=== PATIENT | male | born 1950 | race Caucasian/White ===

== ENCOUNTER → 2022-09-15 09:23 | Outpatient (BNVA) | payer MEDICARE, SELFPAY | PROVIDERS: PCP Internal Medicine; Visit Provider Urology | DX: N52.9 Male erectile dysfunction, unspecified (principal); N40.0 Benign prostatic hyperplasia without lower urinary tract symptoms; R97.20 Elevated prostate specific antigen [PSA]; Z87.442 Personal history of urinary calculi | CPT/HCPCS: 51798; 99202 ==

== ENCOUNTER 2022-11-26 14:33 | Outpatient (AMB) | payer MEDICARE, SELFPAY ==
--- NOTE | 2022-11-26 14:38 | A.OFFVIS_ITS ---
Intake Intake Visit Reasons: cysto Intake Note: Patient presents today for a CYSTOSCOPY Procedure: Meds: Finasteride & Vitamin B6 Allergies to Antibiotic: Penicillins Blood Thinner: None Urinalysis test cleared for Cysto Disposable Uro-G Cystoscope Cannula: Lot: [id number] Exp: 08/06/2024 Strategic Account Executive Required: No Accompanied by: Self / Same As Patient Allergies Penicillins Allergy (Mild, Verified 11/26/22 14:44) Unknown Medication List - Last Reconciled 11/26/22 by Leroy Hassan MD finasteride 5 mg PO DAILY irbesartan 75 mg PO DAILY pyridoxine (vitamin B6) 50 mg PO DAILY 90 days HPI HPI Comments History of Present Illness Details Claudio is a pleasant male. He is a patient of Dr. Motta. He is seen for the following urologic conditions - nephrolithiasis - lower urinary tract symptoms - erectile dysfunction Office cystoscopy today - medium and lateral lobe impingement Would like to undergo procedure early next year Review 3 months Lower urinary tract symptoms Longstanding Progressive Feelings of incomplete emptying Prior urologist had discussed use of finasteride. He had concerns regarding side effects PCP had prescribed daily tadalafil Discussion today regarding office cystoscopy in order to define anatomy and potential procedures. Risks and benefits discussed Erectile dysfunction Recent switched to daily tadalafil Nephrolithiasis For stones over prostate 20 years Works as excavator contractor Suggest increase fluids and vitamin B6 Prescription provided [facility] Medical History BPH (benign prostatic hyperplasia) Elevated PSA History of kidney stones HTN (hypertension) Peyronie's disease Primary osteoarthritis of knees, bilateral Surgical History (Updated 11/26/22 @ 14:45 by TEDDY Tellez) Hx of cystoscopy Review of Systems Const Denies chills and Denies fever(s) Card Reports no additional complaints and Denies syncope Resp Denies cough GI Denies abdominal pain and Denies heartburn Reports as per HPI and Denies change in libido Neuro Denies syncope Psych Denies change in libido Endo Denies change in libido Physical Exam Const General: cooperative, healthy appearing, comfortable and no acute distress Orientation/consciousness: patient oriented x3 HEENT Face and sinus: Yes normal facial exam Mouth: moist mucous membranes Neck Neck: Yes normal visual inspection, Yes full ROM and Yes trachea midline Chest Chest palpation & inspection: normal inspection of the chest Resp Effort & Inspection: normal respiratory effort, able to speak in complete sentences and no respiratory distress GI Inspection: Yes normal to inspection Back/Spine/Pelvis Cervical Spine: normal cervical lordosis Thoracic/Lumbar Spine: thoracic and lumbar spine normal to inspection Skin General skin exam: no rashes or lesions noted Neuro General: patient oriented x3, gait normal, tone normal and moves all extremities Extrem General: Yes normal to inspection and Yes capillary refill normal Office Procedures Cystoscopy Consent Discussed risk and benefit or proposed procedure with the patient. Information consent for procedure given to the patient. Discussed technical aspects, risks, benefits and alternatives in full. Addressed all of the patient's questions and concerns regarding the procedure. The patient demonstrated knowledge and understanding. They wish to proceed with this procedure. Preparation The patient was prepped in the usual manner. A senior attorney was present and in the room. Genitalia was prepped with betadine solution in a sterile manner. Lidocaine Jelly 2% was placed into the urethra and 16Fr flexible Olympus cystoscope was inserted into the meatus after adequate lubrication. Procedure Meatus circumcised Urethra anterior posterior urethra normal Prostatic Urethra median and left lateral lobe enlargement Bladder examination with retroflexion of cystoscope Bladder Orifices normal shape and position Bladder Capacity medium Trabeculations grade 2 Cellule Formation yes Diverticulum Formation - Mucosal Erythema - Bladder Tumor - [id number] Procedure code (CPT) selection complete Office Meds lidocaine HCl Performing Provider: Leroy Hassan MD Documented (not given) by: Leroy Hassan MD on 11/26/22 15:42 Dose Route Admin Location Lot Number Expiration Date NDC Plant Inspector 10 mL intra-urethral Results AMB Urinalysis, Automated UA Leukoctes 0 Leeanne/uL Last Edit by TEDDY Tellez on 11/26/22 14:44 UA Nitrite Negative Last Edit by TEDDY Tellez on 11/26/22 14:44 UA Urobilinogen 0.2 mg/dL Last Edit by Sri Jimenez, RMA on 11/26/22 14:4 4 UA Protein 0 mg/dL Last Edit by Sri Jimenez, RMA on 11/26/22 14:44 UA pH 6.0 Last Edit by Sri Tony, RMA on 11/26/22 14:44 UA Blood 0 Geovanny/uL Last Edit by Sri Jimenez, RMA on 11/26/22 14:44 UA Specific [place] 1.020 Last Edit by Sri Jimenez, RMA on 11/26/22 14: 44 UA Ketone Negative Last Edit by Sri Jimenez, RMA on 11/26/22 14:44 UA Bilirubin 0 mg/dL Last Edit by Sri Jimenez, RMA on 11/26/22 14:44 UA Glucose 0 mg/dL Last Edit by Sri Jimenez, RMA on 11/26/22 14:44 Results Reviewed Results Reviewed: Laboratory Last Values Urine pH (Auto) 6.0 11/26/22 14:40 Specific [place] (Auto) 1.020 11/26/22 14:40 Urine Protein (Auto) 0 mg/dL 11/26/22 14:40 Glucose (UA)(Auto) 0 mg/dL 11/26/22 14:40 Urine Ketones (Auto) Negative 11/26/22 14:40 Urine Blood (Auto) 0 Geovanny/uL 11/26/22 14:40 Urine Nitrite (Auto) Negative 11/26/22 14:40 Urine Bilirubin (Auto) 0 mg/dL 11/26/22 14:40 Urine Urobilinogen (Auto) 0.2 mg/dL 11/26/22 14:40 Leukocyte Esterase (Auto) 0 Leeanne/uL 11/26/22 14:40 Assessment & Plan Assessment & Plan (1) BPH (benign prostatic hyperplasia): Code(s): N40.0 - Benign prostatic hyperplasia without lower urinary tract symptoms Plan Recommend GreenLight laser prostatectomy Busy with excavation work Like to move ahead with procedure in May We discussed the nature of the decision and reasonable options for performing a prostate intervention. Interventions include TURP, GreenLight laser enucleation of the prostate, GreenLight laser ablation of the prostate, transurethral incision of the prostate, and I-Tend prostate procedure. Options such as medical therapy were discussed. The relative uncertainties and benefits related to each alternate procedure were adequately discussed. General surgical risks including, but not limited to, pain, bleeding, infection, myocardial infarction, pulmonary embolus, deep vein thrombosis and cerebrovascular accident which may result in further hospitalization were discussed. Full disclosure of the procedure as well as all major risks, benefits and complications were discussed including but not limited to damage to the urethra or bladder neck, recurrent BPH, retrograde ejaculation, bladder infection, urge, de bebo frequency, incomplete emptying, dysuria, remote chance of erectile dysfunction, epididymitis, and meatal stenosis. The success rate of the procedure was discussed. Success of the procedure in the short-term does not necessarily guarantee that long-term success will be maintained. Suitable follow up will need to be maintained. The patient showed understanding of discussion. An opportunity was provided for questions to be answered and wishes to proceed with the following procedure. - green light laser prostatectomy Orders: Orders AMB Cystoscopy Today N40.0 - Benign prostatic hyperplasia without lower urinary tract symptoms AMB Urinalysis Automated Today Z13.9 - Encounter for screening, unspecified Medications: New lidocaine HCl 2% 10 mL intra-urethral ONCE 10 mL 0RF N40.0 - Benign prostatic hyperplasia without lower urinary tract symptoms Patient Instructions: Imaging studies, laboratory and physical exam results were discussed and reviewed in detail. No major barriers to patient understanding were identified. An opportunity to ask questions regarding the treatment plan was provided. All questions were answered. The patient expressed understanding and agreement with the above treatment plan. The patient is aware they should contact our office by phone for worsening of their current condition or the appearance of new urologic symptoms. Compliance is encouraged with any medications and followup testing that is ordered. It is a privilege to participate in the urologic care of your patient. If you have any questions or concerns regarding treatment for the above conditions, or other urologic issues, please do not hesitate to contact me. The office telephone contact is [phone]. This note is constructed using voice recognition software. While every effort has been made to ensure accuracy transferrer errors may have been included. Yours sincerely, Dr Leroy Hassan MD, [facility] - Urology Providers of Expert, Compassionate Care for the Genitourinary System Coding Level of Care Code Est Pt Level 4 (33828) Diagnoses BPH (benign prostatic hyperplasia) N40.0 CPT Codes Cystoscopy - CPT: 07528-[id number] ([id number])
== END 2022-11-26 15:09 | disposition home or self-care (01) ==
PROVIDERS: PCP Internal Medicine; Visit Provider Urology
DX: N40.0 Benign prostatic hyperplasia without lower urinary tract symptoms (principal); N52.9 Male erectile dysfunction, unspecified; Z87.442 Personal history of urinary calculi
CPT/HCPCS: 52000; 99214

== ENCOUNTER → 2022-11-26 14:33 | Outpatient (BNVA) | payer MEDICARE, SELFPAY | PROVIDERS: PCP Internal Medicine; Visit Provider Urology | DX: N40.0 Benign prostatic hyperplasia without lower urinary tract symptoms (principal); N52.9 Male erectile dysfunction, unspecified; Z87.442 Personal history of urinary calculi | CPT/HCPCS: 52000; 81003; 99212 ==

== ENCOUNTER 2023-06-30 10:10 | Outpatient (AMB) | payer MEDICARE, SELFPAY ==
--- NOTE | 2023-06-30 10:10 | A.OFFVIS_ITS ---
Intake Intake Visit Reasons: Elevated PSA/MRI/Discuss to Surgery Intake Note: Patient presents today for a telehealth follow up on PSA/MRI/ Discussion for surgery Meds- Vitamin B6 Allergies to Antibiotic- Penicillins Blood Thinner- None Vice President Of Product Marketing Required: No Allergies Penicillins Allergy (Mild, Verified 06/30/23 10:14) Unknown HPI HPI Comments 2 History of Present Illness Details Claudio is a pleasant male. He is a patient of Dr. Motta. He is seen for the following urologic conditions - nephrolithiasis - lower urinary tract symptoms - erectile dysfunction Telemedicine Evaluation 15 min Consultation DoxProject Repat Adonis Video attempted Had pop in PSA up to 7 Did recommend biopsy at time of GreenLight laser Has concerns regarding retrograde ejaculation Recent MRI low power scan completed. Suggestive BPH. With indeterminate whorls. Office cystoscopy - medium and lateral lobe impingement Plan Greenlight with prostate biopsy Lower urinary tract symptoms Longstanding Progressive Feelings of incomplete emptying Prior urologist had discussed use of finasteride. He had concerns regarding side effects PCP had prescribed daily tadalafil Discussion today regarding office cystoscopy in order to define anatomy and potential procedures. Risks and benefits discussed Erectile dysfunction Recent switched to daily tadalafil Nephrolithiasis For stones over prostate 20 years Works as excavator contractor Suggest increase fluids and vitamin B6 Prescription provided [facility] Medical History Peyronie's disease HTN (hypertension) Elevated PSA History of kidney stones Primary osteoarthritis of knees, bilateral BPH (benign prostatic hyperplasia) Surgical History Hx of cystoscopy Review of Systems Const All systems reviewed & are unremarkable except as noted in HPI and below Reports no additional complaints Resp Reports no additional complaints GI Reports no additional complaints Reports as per HPI Musc Reports no additional complaints Physical Exam Telemedicine evaluation Appropriate responses Regular breathing rate and rhythm HEENT Head: Yes normal to inspection Ears: hearing grossly normal bilaterally Eyes General: appearance normal, both eyes and all related structures Neck Neck: Yes normal visual inspection Chest Chest palpation & inspection: normal inspection of the chest Resp Effort & Inspection: normal respiratory effort and able to speak in complete sentences Assessment & Plan Assessment & Plan (1) BPH (benign prostatic hyperplasia): Code(s): N40.0 - Benign prostatic hyperplasia without lower urinary tract symptoms (2) Elevated PSA: Code(s): R97.20 - Elevated prostate specific antigen [PSA] (3) Erectile dysfunction: Code(s): N52.9 - Male erectile dysfunction, unspecified Plan Plan procedure in August Patient Instructions: Imaging studies, laboratory and physical exam results were discussed and reviewed in detail. No major barriers to patient understanding were identified. An opportunity to ask questions regarding the treatment plan was provided. All questions were answered. The patient expressed understanding and agreement with the above treatment plan. The patient is aware they should contact our office by phone for worsening of their current condition or the appearance of new urologic symptoms. Compliance is encouraged with any medications and followup testing that is ordered. It is a privilege to participate in the urologic care of your patient. If you have any questions or concerns regarding treatment for the above conditions, or other urologic issues, please do not hesitate to contact me. The office telephone contact is [phone]. This note is constructed using voice recognition software. While every effort has been made to ensure accuracy hospital technician errors may have been included. Yours sincerely, Dr Leroy Hassan MD, [facility] - Urology Providers of Expert, Compassionate Care for the Genitourinary System Telehealth Telehealth Location of provider rendering services: practice address Location of patient: address on file Patient Identification confirmed using: Name, : Yes Telehealth method: video Patient verbally consented to treatment: Yes Patient verbally consented to billing insurance company: Yes Patient informed of any privacy concerns related to visit: Yes Coding Level of Care Code Est Pt Level 4 (03369) Diagnoses BPH (benign prostatic hyperplasia) N40.0 Elevated PSA R97.20 Erectile dysfunction N52.9
== END 2023-06-30 11:22 | disposition home or self-care (01) ==
LOC: HO.HUSH 10:10
PROVIDERS: PCP Internal Medicine; Visit Provider Urology
DX: N40.0 Benign prostatic hyperplasia without lower urinary tract symptoms (principal); R97.20 Elevated prostate specific antigen [PSA]; N52.9 Male erectile dysfunction, unspecified
CPT/HCPCS: 99214

== ENCOUNTER → 2023-06-30 10:10 | Outpatient (BNVA) | payer MEDICARE, SELFPAY | PROVIDERS: PCP Internal Medicine; Visit Provider Urology | DX: N40.0 Benign prostatic hyperplasia without lower urinary tract symptoms (principal); N52.9 Male erectile dysfunction, unspecified; R97.20 Elevated prostate specific antigen [PSA] | CPT/HCPCS: 99212 ==

== ENCOUNTER 2023-08-15 05:54 | Day surgery (SDC) | payer MEDICARE, SELFPAY ==
[2023-08-11 09:59] VITALS: BMI 23.0
--- NOTE | 2023-08-12 14:20 | HO.ANESPROP2 ---
Documented by User: Zita Mcbride NP 08/12/23 14:21 HPI - Anesthesia Eval Consult details Narrative: 73yo M for Laser Ablation Prostate w/Green Light, Prostate Needle Biopsy PMFSH Active Problems Active Problems: All Active Problems Erectile dysfunction (Acute) History of kidney stones (Acute) Elevated PSA (Acute) BPH (benign prostatic hyperplasia) (Acute) Past Medical History Medical History Peyronie's disease HTN (hypertension) Elevated PSA History of kidney stones Primary osteoarthritis of knees, bilateral BPH (benign prostatic hyperplasia) Surgical History Surgical History (Updated 08/11/23 @ 09:56 by Radha Mckay RN) History of esophagogastroduodenoscopy (EGD) H/O colonoscopy Hx of hernia repair Hx of hemorrhoidectomy History of total bilateral knee replacement Hx of cystoscopy Social History Social History Are you a primary human services care specialist to a significant other at home: No Do you presently have visiting nurse or other home services: No Patient Tobacco Use Status: Never used Tobacco Have you been hit, kicked, punched, or otherwise hurt by someone within the past year? If so, by whom?: No Are you DNR?: No Advance Directives Information Provided: Yes (will bring copy DOS) Advance Directives on File: No Recently lost weight without trying: No Eating poorly because of decreased appetite: No Nutrition Risks: No Nutritional Risk Poor oral hygiene: No (one dental implant) Meds Allergies Allergy/AdvReac Type Severity Reaction Status Date / Time Penicillins Allergy Mild itching if Verified 08/11/23 09:59 taken for extended time frame Home Medications ?Medication ?Instructions ?Recorded ?Confirmed ?Last Taken ?Type irbesartan 150 mg tablet 75 mg PO DAILY 09/15/22 08/11/23 Unknown History multivitamin 1 tab PO DAILY 08/11/23 08/11/23 Unknown History vitamin A-vitamin C-vit E-min 1 tab PO DAILY 08/11/23 08/11/23 Unknown History tablet Exam Height,Weight and Vital Signs: Height 5 ft 11 in Weight 74.843 kg Assessment and Plan Assessment Anesthesia Assessment: Chart Reviewed Documented by User: Adan Wei MD 08/15/23 07:25 [facility] Past Medical History Medical History Peyronie's disease HTN (hypertension) Elevated PSA History of kidney stones Primary osteoarthritis of knees, bilateral BPH (benign prostatic hyperplasia) Family History Family history of problems with anesthesia: No Surgical History Surgical History (Updated 08/11/23 @ 09:56 by Radha Mckay RN) History of esophagogastroduodenoscopy (EGD) H/O colonoscopy Hx of hernia repair Hx of hemorrhoidectomy History of total bilateral knee replacement Hx of cystoscopy History of Problems with Anesthesia: No Social History Social History Are you a primary human services care specialist to a significant other at home: No Do you presently have visiting nurse or other home services: No Patient Tobacco Use Status: Never used Tobacco Have you been hit, kicked, punched, or otherwise hurt by someone within the past year? If so, by whom?: No Are you DNR?: No Advance Directives Information Provided: Yes (will bring copy DOS) Advance Directives on File: No Recently lost weight without trying: No Eating poorly because of decreased appetite: No Nutrition Risks: No Nutritional Risk Poor oral hygiene: No (one dental implant) Meds Allergies Allergy/AdvReac Type Severity Reaction Status Date / Time Penicillins Allergy Mild itching if Verified 08/11/23 09:59 taken for extended time frame Home Medications ?Medication ?Instructions ?Recorded ?Confirmed ?Last Taken ?Type irbesartan 150 mg tablet 75 mg PO DAILY 09/15/22 08/11/23 Unknown History multivitamin 1 tab PO DAILY 08/11/23 08/11/23 Unknown History vitamin A-vitamin C-vit E-min 1 tab PO DAILY 08/11/23 08/11/23 Unknown History tablet Exam Airway Mallampati Class: II TM Dist: >3cm Neck ROM: Full Loose/Missing/Broken Teeth: No Heart: ok Lungs: ok Assessment and Plan Assessment Anesthesia Assessment: Anesthesia Plan Discussed Final Anesthetic Review Family History of Problems with Anesthesia: No History of Problems with Anesthesia: No NPO: Yes ASA Class: II Final Preanesthetic Review: No Changes in Pt Med Stat, Meds/Allgs Chart Reviewed, Consent Obtained/Reviewed and Anes Risks/Benef Reviewed Patient Risk: Intermediate Procedure Risk: Low Anesthetic Plan Anesthetic Plan: GA and Agree w/ Assess. and Plan Disposition: Standard PACU
[2023-08-15 06:13] VITALS: BMI 23.8
[2023-08-15 06:25] VITALS: BP 147/84; PULSE 70; RESP 16; TEMP 36.8; O2SAT 97
[2023-08-15] MEDS: Lactated Ringers 1,000 ML 100 ML IVCONT (06:45)
--- NOTE | 2023-08-15 07:32 | P.HPSUR_ITS ---
Pre-Procedural Eval Section A - 24 Hr Update-Section A only Date of Service: 08/15/23 The patient is an INPATIENT: No Changes since office visit: No Cold of Flu in the past 2 weeks, No New Medical Problems, No Changes in Medication and No Patient answered all questions The patient has been examined within 24 hours of the surgical procedure. The History & Physical has been completed within 30 days and I have reviewed it.: Yes Section B - Complete if H&P > 30 days Chief Complaint: Disorder of prostate, unspecified Details of Present Illness: Elevated PSA and enlarged prostate Relevant Social History: None Present Medications: see Short Stay Collaborative assessment Medical History: No relevant PMH History of Previous Operations: No relevant previous surgery Allergies: Allergies Allergy/AdvReac Type Severity Reaction Status Date / Time Penicillins Allergy Mild itching if Verified 08/11/23 09:59 taken for extended time frame Review of Systems Sugical H&P ROS: Negative: Constitution, Cardiovascular, Respiratory, Neurological, Psychiatric, Hem-Onc, Allergic/Immunologic, Gastrointestinal, Genitourinary, Musculoskeletal, Integumentary, Endocrine and Eyes/Ears/N ose/Throat Exam Surgical H&P Exam: Normal: HEENT, Normal: Heart, Normal: Lungs, Normal: Extremities, Normal: Abdomen, Normal: Skin and Normal: Neurological Plan Diagnosis/Plan: Unchanged (Prostate biopsy plus GreenLight laser prostate) I have reviewed the history and physical and performed a pertinent physical examination on my patient. No changes have occurred unless specified. Time Spent With Patient Time: Total time managing care of this patient today ____ minutes.
[2023-08-15 09:17] VITALS: BP 115/69; PULSE 55; RESP 16; TEMP 36.3; O2SAT 98
[2023-08-15 09:22] VITALS: BP 111/64; PULSE 55; RESP 16; O2SAT 98
--- NOTE | 2023-08-15 09:26 | P.OP_ITS ---
Operative Note Operative Note Date of Service: 08/15/23 Narrative: PreOperative Diagnosis: Bladder outlet obstruction, elevated PSA Post Operative Diagnosis: Bladder outlet obstruction, elevated PSA, bladder stone Procedure: 1) psrectal ultrasound measurement of prostate 2. transrectal ultrasound-guided pudendal nerve block 3. transrectal ultrasound-guided prostate biopsy 12 core 4) GreenLight Laser Enucleation of the prostate CPT 79887 5) bladder stone removal Surgeon: Dr Leroy Hassan Anesthesia: General Indications for procedure: Enlarged prostate 100 cc and elevated PSA. Recommendation for prostate needle biopsy with GreenLight laser enucleation of the prostate. PSA 4.0 History of bladder outlet obstruction. Treated with alpha-terri and other medications. Still with symptoms. On cystoscopy in office has trilobar prostate. Recommendation for prostate procedure with laser enucleation of prostate. Risks and benefits have been discussed. Focus was placed on development of retrograde ejaculation which is a normal part of this procedure. Procedure: After informed consent was verified the patient was brought to the operating room and placed in a supine position. Anesthesia was administered per protocol. Patient was placed in modified dorsal lithotomy position and prepped and draped in a sterile fashion. Safety pause time-out was confirmed. Antibiotics have been given. NVIIA performed to dilate rectal sphincter Iodine 10cc with Gel was placed per rectum to reduce infection risk Eight hertz Alivia ultrasound probe was placed transrectally without difficulty. The prostate was visualized. The portals were well demarcated, seminal vesicles were normal. No cystic structures were noted Calcifications were noted at the surgical margin The prostate was otherwise homogeneous in nature The prostate was measured in 3 dimensions Prostatic Width: 5.1 Prostatic height: 5.8 Urethral length:6.4 Total volume equals : 100 gm An ultrasound-guided pudendal nerve block was performed using a 22 gauge spinal needle in the sagittal plane. 4 cc of 1% lidocaine placed at the junction of each seminal vesicle and 2 cc placed at the apex of the prostate. A 12 core biopsy was performed with 6 cores each side using an 18 gauge prostate biopsy gun.. Two cores were taken at the apex, mid and base. Cores were spaced between lateral and medial. A Twenty-four Slovenian laser cystoscope was inserted per urethra. No abnormalities were found of the anterior and bulbar urethra. The bladder was examined and both ureteric orifices were seen in their normal positions away from the area of interest. Using a GreenLight laser with settings of 80 w incisions were made at the 5 and 7 o'clock position. The incisions were taken down from the bladder neck down to the level of the veru. These were gradually deepened in order to define the lateral aspects of the median lobe area. Once clearly defined they will also extended in the lateral directions in order to create a deep groove. The median lobe was then ablated and enucleated tissue released into the bladder with the laser power increased to 120 W. Once the median lobe area had been cleared attention was directed to the lateral lobes. Starting with the patient's left lateral lobe. First the 05:00 o'clock groove was further developed. This was moved in the lateral direction to undermine the tissue on the lateral side running from the bladder neck to the prostate apex. Focus was then placed on the laser at the 1 o'clock position to developing a secondary groove down to the level of bladder fibers. The creation of a second deep groove defined a segment of intervening tissue similar to a slice of orange. At the apex of the prostate the 2 grooves were linked the us releasing the intervening tissue. This tissue was then removed with a combination of enucleation and ablation working from the apex toward the bladder neck. A similar procedure was repeated on the patient's right-hand side. The only differences being the position of the lateral groove at he 7 'oclock positioin and the secondary groove at the 11 o'clock position, Otherwise the procedure was developed in a mirror fashion. After the majority of tissue had been debulked remnant tissue was ablated with t he side fire laser and the curve of the prostate followed up each side wall clearly defining the anterior remnant strip that remained between the 11 and 1 o'clock positions. In this case the anterior tissue protruded into the prostatic fossa and was partially ablated with the laser When this was had been completed debris and pieces of prostate were removed from the bladder with irrigation. 1 cm bladder stone seen. Using a 0 tip 2.4 Slovenian wire the stone was grasped and removed. Both ureteric orifices were reviewed again in shown to be patent in away from any areas of energy damage. The apical area was reviewed in any stray ooze was controlled. A 22 Slovenian 30 cc balloon Vides catheter was placed over a stylet into the bladder. Clear efflux was obtained upopn irrigation with a Jose piston syringe. 60 cc was placed in the balloon and gentle traction was placed. A snap was used to hold tension on the catheter to control bleeding during patient moved and transported. A drainage bag was placed. Once transportation is complete to the PACU the snap will be removed. The patient tolerated the procedure well, he was extubated in the operating and transferred in a stable condition to the recovery area. Total Power 230 kW Lasing time 34:03 / 60:00 Pathology: Prostate biopsy, bladder stone, Prostate tissue Drains: Vides catheter
[2023-08-15 09:27] VITALS: BP 102/58; PULSE 55; RESP 16; O2SAT 98
[2023-08-15] MEDS: Acetaminophen 325 MG TABLET 975 MG PO (09:27)
[2023-08-15 09:32] VITALS: BP 101/65; PULSE 54; RESP 16; O2SAT 98
[2023-08-15 09:47] VITALS: BP 119/68; PULSE 53; RESP 16; TEMP 36.3; O2SAT 99
== END 2023-08-15 10:22 | disposition home or self-care (01) ==
PROVIDERS: Visit Provider Urology
PROC: (CPT 52648; principal; 2023-08-15 07:30)
PROC: (CPT 55700; 2023-08-15 07:30)
DX: N32.0 Bladder-neck obstruction (principal); R97.20 Elevated prostate specific antigen [PSA]; C61 Malignant neoplasm of prostate; N21.0 Calculus in bladder; N40.0 Benign prostatic hyperplasia without lower urinary tract symptoms; N52.9 Male erectile dysfunction, unspecified; N48.6 Induration penis plastica; I10 Essential (primary) hypertension; Z87.442 Personal history of urinary calculi; Z79.899 Other long term (current) drug therapy; Z88.0 Allergy status to penicillin
CPT/HCPCS: 52649; 55700; 76942; 88300; 88305; 88344; J1956; J2704; J3010

== ENCOUNTER → 2023-08-15 05:54 | Outpatient (BNV) | payer MEDICARE, SELFPAY | PROVIDERS: Visit Provider Urology | DX: N32.0 Bladder-neck obstruction (principal); R97.20 Elevated prostate specific antigen [PSA]; N21.0 Calculus in bladder | CPT/HCPCS: 52649; 55700 ==

== ENCOUNTER 2023-08-18 08:47 | Outpatient (AMB) | payer MEDICARE, SELFPAY ==
--- NOTE | 2023-08-18 08:51 | AM.OFFVISNUR ---
Intake Intake Visit Reasons: VT (Greenlight) Allergies Penicillins Allergy (Mild, Verified 08/11/23 09:59) itching if taken for extended time frame Office Procedures Bladder/Catheter Procedure Details: Patient presents to office for VT s/p greenlight procedure. Instilled 120 mls through catheter, removal of 22fr catheter patient tolerated well. Patient able to urinate approximately 100mls. PVR for 225mls. Advised patient to drink lots of water to help flush out bladder and to call office by 2 if unable to urinate at home or if he has any questions or concerns. Gave handout for post-op expectations after greenlight procedure as well as explained normal expectations post procedure. Patient understood all information and agreeable. Patient will also be given tele visit late next week per Dr. Hassan to discuss biopsy results and keep post op follow up appt as well. 16660-Hnidgrpcpr of Bladder Procedure code (CPT) selection complete Post Void Residual Post Residual Void Post Void Residual (PVR): 225 71800-Lopv Void Residual by ultrasound Results AMB Urinalysis, Automated UA Leukoctes 125 Leeanne/uL Last Edit by Giovanni Gaspar LPN on 08/18/23 09:14 UA Nitrite Negative Last Edit by Giovanni Gaspar LPN on 08/18/23 09:14 UA Urobilinogen 0 mg/dL Last Edit by Giovanni Gaspar LPN on 08/18/23 09:14 UA Protein 0 mg/dL Last Edit by Giovanni Gaspar LPN on 08/18/23 09:14 UA pH 6.0 Last Edit by Giovanni Gaspar LPN on 08/18/23 09:14 UA Blood 200 Geovanny/uL Last Edit by Giovanni Gaspar LPN on 08/18/23 09:14 UA Specific [place] 1.020 Last Edit by Giovanni Gaspar LPN on 08/18/23 09:14 UA Ketone Negative Last Edit by Giovanni Gaspar LPN on 08/18/23 09:14 UA Bilirubin 0 mg/dL Last Edit by Giovanni Gaspar LPN on 08/18/23 09:14 UA Glucose 0 mg/dL Last Edit by Giovanni Gaspar LPN on 08/18/23 09:14 Coding CPT Codes Bladder/Catheter Procedure - CPT: 56335-Nrdczwgwht of Bladder ([id number]) Post Residual Void - PVR CPT Code: 57869-Cfef Void Residual by ultrasound ([id number]) Assessment & Plan Assessment & Plan Orders: Orders AMB Bladder/Catheter Procedure Today N40.0 - Benign prostatic hyperplasia without lower urinary tract symptoms AMB Post Void Residual by ultrasound Today N40.0 - Benign prostatic hyperplasia without lower urinary tract symptoms AMB Urinalysis Automated Today N40.0 - Benign prostatic hyperplasia without lower urinary tract symptoms
== END 2023-08-18 09:44 | disposition home or self-care (01) ==
PROVIDERS: PCP Internal Medicine; Visit Provider Urology
DX: N40.0 Benign prostatic hyperplasia without lower urinary tract symptoms (principal)

== ENCOUNTER → 2023-08-18 08:47 | Outpatient (BNVA) | payer MEDICARE, SELFPAY | PROVIDERS: PCP Internal Medicine; Visit Provider Urology | DX: N40.0 Benign prostatic hyperplasia without lower urinary tract symptoms (principal) | CPT/HCPCS: 51700; 51798; 81003 ==

== ENCOUNTER 2023-08-26 11:20 | Outpatient (AMB) | payer MEDICARE, SELFPAY ==
--- NOTE | 2023-08-26 11:21 | A.OFFVIS_ITS ---
Intake Visit Reasons: 1w/biopsy results Allergies Penicillins Allergy (Mild, Verified 08/11/23 09:59) itching if taken for extended time frame HPI Comments Details: Claudio is a pleasant male. He is a patient of Dr. Motta. He is seen for the following urologic conditions - nephrolithiasis - lower urinary tract symptoms - erectile dysfunction Telemedicine Evaluation 15 min Consultation Doximity Adonis Video attempted Discuss biopsy follow-up Low-grade low volume prostate cancer Would recommend surveillance Prostate cancer - low-grade, low volume Biopsy performed time of GreenLight laser Secondary to jump in PSA from 4.0 to 7 Qulin score: 3+3 = 6 Tumor quantitation: Number cores positive: 3 Total number of cores: 12 LBL 5%, LML 5%, RBL 5% % of tissue involved: Less than 5% of all tissue examined T1C 85 gm Lower urinary tract symptoms Longstanding - Progressive - Feelings of incomplete emptying Prior urologist had discussed use of finasteride. He had concerns regarding side effects PCP had prescribed daily tadalafil PSA 05/27 4.0 08/25 GreenLight laser prostate Erectile dysfunction Recent switched to daily tadalafil Nephrolithiasis For stones over prostate 20 years Works as excavator contractor Suggest increase fluids and vitamin B6 Prescription provided [facility] Medical History (Updated 08/26/23 @ 11:40 by Leroy Hassan MD) Peyronie's disease HTN (hypertension) Elevated PSA History of kidney stones Primary osteoarthritis of knees, bilateral BPH (benign prostatic hyperplasia) Surgical History (Updated 08/11/23 @ 09:56 by Radha Mckay RN) History of esophagogastroduodenoscopy (EGD) H/O colonoscopy Hx of hernia repair Hx of hemorrhoidectomy History of total bilateral knee replacement Hx of cystoscopy Social History Are you a primary health care manager to a significant other at home: No Do you presently have visiting nurse or other home services: No Patient Tobacco Use Status: Never used Tobacco Review of Systems Const All systems reviewed & are unremarkable except as noted in HPI and below Reports no additional complaints Resp Reports no additional complaints GI Reports no additional complaints Reports as per HPI Musc Reports no additional complaints Physical Exam Telemedicine evaluation Appropriate responses Regular breathing rate and rhythm HEENT Head: Yes normal to inspection Ears: hearing grossly normal bilaterally Eyes General: appearance normal, both eyes and all related structures Neck Neck: Yes normal visual inspection Chest Chest palpation & inspection: normal inspection of the chest Resp Effort & Inspection: normal respiratory effort and able to speak in complete sentences Telehealth Telehealth Telehealth Platform: NVELO Location of provider rendering services: practice address Location of patient: address on file Patient Identification confirmed using: Name, : Yes Telehealth method: video Patient verbally consented to treatment: Yes Patient verbally consented to billing insurance company: Yes Patient informed of any privacy concerns related to visit: Yes Minutes spent on Phone/Video with Pt.: 20 Assessment & Plan Assessment & Plan (1) Prostate cancer: Code(s): C61 - Malignant neoplasm of prostate Category: Medical (2) BPH (benign prostatic hyperplasia): Code(s): N40.0 - Benign prostatic hyperplasia without lower urinary tract symptoms Category: Medical Plan Plan Prolaris Patient Instructions: Imaging studies, laboratory and physical exam results were discussed and reviewed in detail. No major barriers to patient understanding were identified. An opportunity to ask questions regarding the treatment plan was provided. All questions were answered. The patient expressed understanding and agreement with the above treatment plan. The patient is aware they should contact our office by phone for worsening of their current condition or the appearance of new urologic symptoms. Compliance is encouraged with any medications and followup testing that is ordered. It is a privilege to participate in the urologic care of your patient. If you have any questions or concerns regarding treatment for the above conditions, or other urologic issues, please do not hesitate to contact me. The office telephone contact is [phone]. This note is constructed using voice recognition software. While every effort has been made to ensure accuracy therapeutic radiologist errors may have been included. Yours sincerely, Dr Leroy Hassan MD, WALKER [facility] - Urology Providers of Expert, Compassionate Care for the Genitourinary System Coding Level of Care Code Est Pt Level 4 (58708) Diagnoses Prostate cancer C61 BPH (benign prostatic hyperplasia) N40.0
== END 2023-08-26 12:00 | disposition home or self-care (01) ==
LOC: HO.HUSH 11:20
PROVIDERS: PCP Internal Medicine; Visit Provider Urology
DX: C61 Malignant neoplasm of prostate (principal); N40.0 Benign prostatic hyperplasia without lower urinary tract symptoms
CPT/HCPCS: 99024

== ENCOUNTER → 2023-08-26 11:20 | Outpatient (BNVA) | payer MEDICARE, SELFPAY | PROVIDERS: PCP Internal Medicine; Visit Provider Urology ==

== ENCOUNTER 2023-10-28 15:03 | Outpatient (AMB) | payer MEDICARE, SELFPAY ==
--- NOTE | 2023-10-28 15:19 | A.OFFVIS_ITS ---
Intake Visit Reasons: Greenlight- follow up Intake Note: Patient Is Present for Post Op Follow up Procedure Done:Prostate biopsy plus GreenLight laser prostate Urology Med: Vitamin B6 Antibiotic Allergy:Penicillins Blood Thinner: None Patient states that he does not have any concerns regarding urination Security Operations Manager Required: No Allergies Penicillins Allergy (Mild, Verified 08/11/23 09:59) itching if taken for extended time frame HPI Comments Details: Claudio is a pleasant male. He is a patient of Dr. Motta. He is seen for the following urologic conditions - nephrolithiasis - lower urinary tract symptoms - erectile dysfunction Follow-up from GreenLight laser prostatectomy Improving urinary flow Working Prostate cancer - 08/25 - low-grade, low volume Biopsy performed time of GreenLight laser Secondary to jump in PSA from 4.0 to 7 Jeremi score: 3+3 = 6 Tumor quantitation: Number cores positive: 3 Total number of cores: 12 LBL 5%, LML 5%, RBL 5% % of tissue involved: Less than 5% of all tissue examined T1C 85 gm Lower urinary tract symptoms Longstanding - Progressive - Feelings of incomplete emptying Prior urologist had discussed use of finasteride. He had concerns regarding side effects PCP had prescribed daily tadalafil PSA 05/27 4.0 08/25 GreenLight laser prostate Erectile dysfunction Recent switched to daily tadalafil Nephrolithiasis For stones over prostate 20 years Works as excavator contractor Suggest increase fluids and vitamin B6 Prescription provided [facility] Medical History Peyronie's disease HTN (hypertension) Elevated PSA History of kidney stones Primary osteoarthritis of knees, bilateral BPH (benign prostatic hyperplasia) Surgical History History of esophagogastroduodenoscopy (EGD) H/O colonoscopy Hx of hernia repair Hx of hemorrhoidectomy History of total bilateral knee replacement Hx of cystoscopy Social History Are you a primary child care worker to a significant other at home: No Do you presently have visiting nurse or other home services: No Patient Tobacco Use Status: Never used Tobacco Review of Systems Const Denies chills and Denies fever(s) Card Reports no additional complaints and Denies syncope Resp Denies cough GI Denies abdominal pain and Denies heartburn Reports as per HPI and Denies change in libido Neuro Denies syncope Psych Denies change in libido Endo Denies change in libido Physical Exam Const General: cooperative, healthy appearing, comfortable and no acute distress Orientation/consciousness: patient oriented x3 HEENT Face and sinus: Yes normal facial exam Mouth: moist mucous membranes Neck Neck: Yes normal visual inspection, Yes full ROM and Yes trachea midline Chest Chest palpation & inspection: normal inspection of the chest Resp Effort & Inspection: normal respiratory effort, able to speak in complete sentences and no respiratory distress GI Inspection: Yes normal to inspection Back/Spine/Pelvis Cervical Spine: normal cervical lordosis Thoracic/Lumbar Spine: thoracic and lumbar spine normal to inspection Skin General skin exam: no rashes or lesions noted Neuro General: patient oriented x3, gait normal, tone normal and moves all extremities Extrem General: Yes normal to inspection and Yes capillary refill normal Assessment & Plan Assessment & Plan (1) Prostate cancer: Code(s): C61 - Malignant neoplasm of prostate Category: Medical (2) BPH (benign prostatic hyperplasia): Code(s): N40.0 - Benign prostatic hyperplasia without lower urinary tract symptoms Category: Medical Plan Six-month follow-up imaging and PSA Orders: Orders Prostate Specific Antigen 6 Months C61 - Malignant neoplasm of prostate MR pelvis wo/w con 6 Months C61 - Malignant neoplasm of prostate Patient Instructions: Imaging studies, laboratory and physical exam results were discussed and reviewed in detail. No major barriers to patient understanding were identified. An opportunity to ask questions regarding the treatment plan was provided. All questions were answered. The patient expressed understanding and agreement with the above treatment plan. The patient is aware they should contact our office by phone for worsening of their current condition or the appearance of new urologic symptoms. Compliance is encouraged with any medications and followup testing that is ordered. It is a privilege to participate in the urologic care of your patient. If you have any questions or concerns regarding treatment for the above conditions, or other urologic issues, please do not hesitate to contact me. The office telephone contact is [phone]. This note is constructed using voice recognition software. While every effort has been made to ensure accuracy inspector of dredging errors may have been included. Yours sincerely, Dr Leroy Hassan MD, WALKER [facility] - Urology Providers of Expert, Compassionate Care for the Genitourinary System Coding Level of Care Code Est Pt Level 3 (65348) Diagnoses Prostate cancer C61 BPH (benign prostatic hyperplasia) N40.0
== END 2023-10-28 16:09 | disposition home or self-care (01) ==
PROVIDERS: PCP Internal Medicine; Visit Provider Urology
DX: C61 Malignant neoplasm of prostate (principal); N40.0 Benign prostatic hyperplasia without lower urinary tract symptoms
CPT/HCPCS: 99024

== ENCOUNTER → 2023-10-28 15:03 | Outpatient (BNVA) | payer MEDICARE, SELFPAY | PROVIDERS: PCP Internal Medicine; Visit Provider Urology | DX: N52.9 Male erectile dysfunction, unspecified (principal); C61 Malignant neoplasm of prostate; R33.9 Retention of urine, unspecified; Z87.442 Personal history of urinary calculi | CPT/HCPCS: 99212 ==

== ENCOUNTER 2024-04-21 08:30 | Outpatient (REF) | payer MEDICARE, SELFPAY ==
[2024-04-21 10:43] LABS: Prostate Specific Antigen 2.74 ng/mL (<0.05-4.0)
== END 2024-04-21 08:31 | disposition home or self-care (01) ==
LOC: HO.LAB 08:30
PROVIDERS: PCP Internal Medicine; Visit Provider Urology
DX: C61 Malignant neoplasm of prostate (principal); Z12.5 Encounter for screening for malignant neoplasm of prostate
CPT/HCPCS: 36415; 84153

== ENCOUNTER → 2024-04-25 08:32 | Outpatient (BNV) | payer MEDICARE, SELFPAY | PROVIDERS: PCP Internal Medicine; Visit Provider Radiology Diagnostic Radiology | DX: C61 Malignant neoplasm of prostate (principal) | CPT/HCPCS: 72197 ==

== ENCOUNTER 2024-04-25 08:33 | Outpatient (REF) | payer MEDICARE, SELFPAY ==
--- NOTE | ~2024-04-25 | MR_ITS ---
EXAMINATION: MR PELVIS WITHOUT THEN WITH IV CONTRAST HISTORY: C61 - Malignant neoplasm of prostate TECHNIQUE: 1.5T body coil survey of the pelvis was performed. Phase array coil imaging of the prostate was performed in multiplanar high resolution axial, coronal, sagittal fast spin echo T2 and axial T1 weighted imaging sequences. Axial diffusion imaging at intermediate and high field performed with ADC mapping. Next, 7 mL Gadavist was given by intravenous infusion, and dynamic axial imaging performed. COMPARISON: There are no prior studies for comparison. CLINICAL DATA: Most recent PSA: 2.74 ng/mL PSA Density: 0.048 ng/mL squared Prostate Biopsy: Positive biopsy on 08/15/2023 with a Barton score 3+3 = 6 FINDINGS: Prostate size: 4.7 x 4.8 x 4.9 cm. Calculated prostate volume is 57.5 mL. Hemorrhage: There is hyperintense T1 signal in the right peripheral zone consistent with hemorrhage. Transitional Zone: There is moderate heterogeneous nodular hypertrophy of the transitional zone. Peripheral Zone: There are scattered linear T2 hypointense foci in the peripheral zone which can be seen in the setting of prostatitis of scarring. No discrete focus of abnormal signal intensity is identified to suggest clinically significant prostate carcinoma. Seminal Vesicles/Ejaculatory Ducts: Symmetric and normal in signal and caliber. Pelvic Lymph Nodes: No obturator or internal iliac lymph nodes meeting size criteria for adenopathy. Marrow Signal: Normal marrow signal and enhancement without focal lesion identified. Other findings: The left testis is noted to be in the inguinal canal. MR/MR pelvis wo/w con IMPRESSION: No discrete focus of abnormal signal intensity is identified to suggest clinically significant prostate carcinoma. The left testis is located in the inguinal canal. PI-RADS 2: Low (clinically significant cancer is unlikely to be present) PI-RADS Assessment Categories PI-RADS 1: Very low (clinically significant cancer is highly unlikely to be present) PI-RADS 2: Low (clinically significant cancer is unlikely to be present) PI-RADS 3: Intermediate (the presence of clinically significant cancer is equivocal) PI-RADS 4: High (clinically significant cancer is likely to be present) PI-RADS 5: Very high (clinically significant cancer is highly likely to be present) [employer]. MR Prostate Imaging Reporting and Data System version 2.1. [email or web address] Electronically signed by: Christopher Bliss MD 04/26/2024 01:50 PM EST
--- OUTSIDE RECORDS SUMMARY | 2024-04-25 08:54 | XMS_ITS | Clinical Summary ---
Author Organization [facility] Address [address] [place] [address] Care Team Providers Care Hoist Operator Name Role Phone Efra Motta MD Primary Care Provider [phone] Allergies Active Allergy Reactions Criticality Noted Date Comments Penicillins Itching Low 03/27/2019 ONLY IF ON FOR LONG TIME Medications Medication Sig Dispensed Refills Start Date End Date Status irbesartan (AVAPRO) 150 MG tablet Take 75 mg by mouth daily. Using 1/2 tab 0 Active Multiple Vitamin (MULTI-VITAMIN PO) Take 1 tablet by mouth daily. 0 Active Multiple Vitamins-Minerals (OCUVITE EYE HEALTH FORMULA PO) Take 1 tablet by mouth every 7 days. 0 Active UNABLE TO FIND daily as needed. NUGENIX 1 TAB PO WEEKLY 0 Active sildenafil (VIAGRA) 50 MG tablet Take 50 mg by mouth daily as needed for erectile dysfunction. 0 Active Ascorbic Acid ER 1000 MG TBCR Take 1 tablet (1,000 mg total) by mouth daily. 30 each 0 04/25/2019 Active Glucosamine-Chondro it-Vit C-Mn (GLUCOSAMINE CHONDR 500 COMPLEX PO) Take by mouth. 0 Activ e UNABLE TO FIND Med Name: NMN procomplete 0 Active methocarbamol (ROBAXIN) 750 MG tablet Take 1 tablet (750 mg total) by mouth every 6 (six) hours as needed (muscle spasm). 40 tablet 0 04/21/2021 Active oxyCODONE (ROXICODONE) 5 MG immediate release tablet Take 1-2 tablets (5-10 mg total) by mouth every 4 (four) hours as needed for pain. 42 tablet 0 04/21/2021 Active senna-docusate (PERICOLACE) 8.6-50 MG Take 1 tablet by mouth 2 (two) times a day. 30 tablet 0 04/21/2021 Active Active Problems Problem Noted Date Diagnosed Date Osteoarthritis of both knees 04/24/2019 Primary osteoarthritis of both knees 04/05/2019 Immunizations Name Administration Dates Next Due Covid-19 (Pfizer) Dilution Required 07/12/2020,0 06/21/2020 Family History Medical History Relation Name Comments Heart attack Father Heart disease Father Hypertension Father Kidney disease Father FAILURE AT EN D OF LIFE Hypertension Mother No Sig Med Hx Sister 2 Relation Name Status Comments Father (Age 83) [place] Mother Alive Sister 2 Alive Social History Tobacco Use Types Packs/Day Years Used Date Smoking Tobacco: Never Smokeless Tobacco: Never Alcohol Use Standard Drinks/Week Comments Yes 0 (1 standard drink = 0.6 oz pur e alcohol) 1 6 pack per year Sex and Gender Information Value Date Recorded Sex Assigned at Male 03/27/2019 8:18 AM EST Gender Identity Male 03/27/2019 8:18 AM EST Sexual Orientation Not on file Job Start Date Occupation Industry Not on file Not on file Not on file Last Filed Vital Signs Vital Sign Reading Time Taken Comments Blood Pressure 127/74 04/21/2021 8:40 AM EST Pulse 58 04/21/2021 8:40 AM EST Temperature 36.9 ??C (98.4 ??F) 04/21/2021 8:40 AM ES T Respiratory Rate 16 04/21/2021 8:40 AM EST Oxygen Saturation 97% 04/21/2021 8:40 AM EST Inhaled Oxygen Concentration - - Weight 74.4 kg (164 lb) 04/20/2021 7:26 AM EST Height 179.1 cm (5' 10.5 ) 04/20/2021 7:26 AM ES T Body Mass Index 23.2 04/20/2021 7:26 AM EST Plan of Treatment Health Maintenance Due Date Last Done Comments Hepatitis C Screening 1952 Depression Screening 1964 Preventative Health Evaluation 1970 DTap / Tdap / Td (1 - Tdap) 08/06/1971 Colon Cancer Screening (Colonoscopy) 1997 Shingrix-Zoster Vaccine (1 o f 2) 2002 Fall Risk Assessment 2017 Pneumococcal Vaccine (1 of 1 - PCV) 2017 COVID-19 Vaccine (2023-2 5 season) 2023 07/12/2020, 06/21/2020 Influenza Vaccine (#1) 2023 RSV Adult > 60+ Yrs or (1 - 1-dose 75+ series) 08/06/2027 Hepatitis B Vaccines Aged Out No long er eligible based on patient's age to complete this topic RSV Ped < 20 months Aged Out No longe r eligible based on patient's age to complete this topic Medical Devices Implanted Type Area Change Coordinator Device Identifier Shelf Expiration Date Model / Serial / Lot Component Femoral Posterior Stabilized Rt Size 4 Beaded W\Pe - [id number] - [id number] Implanted:Qty: 1 on 04/24/2019 by Brigido Adair MD at [facility] and Med Right: Knee [employer] 01/14/2024 5516-F-402 / / [id number] Triathlon Tritanium Baseplate Size 5 - [id number] - [id number] Implanted:Qty: 1 on 04/24/2019 by Brigido Adair MD at [facility] and [facility] Right: Knee [employer] 02/27/2024 5536-B-500 / / [id number] Insert Triathlon 5 9mm Posterior Stabilized Bearing X3 - [id number] - [id number] Implanted:Qty: 1 on 04/24/2019 by Brigido Adair MD at [facility] and [facility] Right: Knee [employer] 01/04/2022 5532-G-509 / / [id number] Tritanium Asymmetric Metal Backed Patella 32mm - [id number] - [id number] Implanted:Qty: 1 on 04/24/2019 by Brigido Adair MD at [facility] and Med Right: Knee [employer] 02/18/2024 5552-L-320 / / [id number] Knee Bsplt Triathlon Ti Sz 4 Stry-Howm [id number] - [id number] Implanted:Qty: 1 on 04/20/2021 by Brigido Adair MD at [facility] and Med Left: Knee [employer] [id number] 12/27/2025 5536-B-400 / / [id number] Knee Tib Insrt Brng Sz 4 9mm Stry-Howm [id number] - [id number] Implanted:Qty: 1 on 04/20/2021 by Brigido Adair MD at [facility] and [facility] Left: Knee [employer] [id number] 10/26/2025 5531-G-409 / / [id number] Knee Fem Bsplt [facility] [id number] - [id number] Implanted:Qty: 1 on 04/20/2021 by Brigido Adair MD at [facility] and [facility] Left: Knee [employer] [id number] 02/06/2026 5517-F-301 / / [id number] Knee Ptla Asym Tritanium 32x10 [facility] [id number] - [id number] Implanted:Qty: 1 on 04/20/2021 by Brigido Adair MD at [facility] and [facility] Left: Knee [employer] [id number] 12/26/2025 5552-L-320 / / [id number] Advance Directives For more information, please contact: [phone] Latest Code Status on File Code Status Date Activated Date Inactivated Comments Full Code 04/20/2021 8:47 AM 04/21/2021 6:16 PM This code status was ascertained in the following way: per living will or healthcare instructions . Code Status History Code Status Date Activated Date Inactivated Comments Full Code 04/20/2021 6:45 AM 04/20/2021 8:47 AM This code status was ascertained in the following way: discussion with patient . Full Code 04/24/2019 8:52 AM 04/25/2019 8:04 PM This code status was ascertained in the following way: discussion with patient . Full Code 04/24/2019 5:25 AM 04/24/2019 8:52 AM This code status was ascertained in the following way: discussion with patient . Care Teams Hoist Operator Relationship Specialty Start Date End Date Efra Motta MD [address] [place] [phone] PCP - General Internal Medicine 03/12/19
--- OUTSIDE RECORDS SUMMARY | 2024-04-25 08:55 | XMS_ITS | Clinical Summary ---
Author Organization [facility] Address [address] [place] [phone] Care Team Providers Care Power Superintendent Name Role Phone Efra Motta MD Primary Care Provider [phone] Surgical History Surgery Date Site/Laterality Comments HERNIA REPAIR Bilateral PROCEDURE:HERNIA REPAIR;COMMENT:INGUINAL OTHER SURGICAL HISTORY PROCEDURE:HEMORROIDECTOMY COLONOSCOPY PROCEDURE:COLONOSCOPY EYE SURGERY Bilateral PROCEDURE:EYE SURGERY;COMMENT:PLASTIC SURGERY TOTAL KNEE ARTHROPLASTY 04/2019 Right PROCEDURE:TOTAL KNEE ARTHROPLASTY Medical History Medical History Date Comments Osteoarthritis DX:Osteoarthriti s Hypertension DX:Hypertension Motion sickness DX:Motion sickne ss History of acute hepatitis 1974 DX:Hi story of acute hepatitis;COMMENT:TX RESOLVED Kidney stone DX:Kidney stone; COMMENT:PASSED BPH (benign prostatic hyperplasia) DX:BPH (benign prostatic hyperplasia) History of herpes genitalis DX:H istory of herpes genitalis Elevated AST (SGOT) DX:Elevated AST (SGOT);COMMENT:Avoid tyelnol Urinary retention DX:Urinary ret ention;COMMENT:post op Rt TKA Family History Medical History Relation Name Comments Heart attack Father Heart disease Father Hypertension Father Kidney disease Father FAILURE AT EN D OF LIFE Hypertension Mother No Known Problems Sister 2 Relation Name Status Comments Father (Age 83) [place] Mother Alive Sister 2 Alive Social History Tobacco Use Types Packs/Day Years Used Date Smoking Tobacco: Never Smokeless Tobacco: Never Alcohol Use Standard Drinks/Week Comments Yes 0 (1 standard drink = 0.6 oz pur e alcohol) Sex and Gender Information Value Date Recorded Sex Assigned at Not on file Gender Identity Not on file Sexual Orientation Not on file Obstetrics History Plan of Treatment Health Maintenance Due Date Last Done Comments DTaP,Tdap,and Td Vaccines (1 - Tdap) 08/06/1971 Zoster Vaccines (1 of 2) 2002 Pneumococcal Vaccine: 65+ Years (1 of 1 - PCV) 2017 Abdominal Aortic Aneurysm (AAA) Screen 03/07/2022 Cholesterol Screening (Lipid Panel) 03/07/2022 Colorectal Cancer Screening: Colonoscopy 03/07/2022 Depression Screening 03/07/2022 Falls Risk Assessment 03/07/2022 Hepatitis C Screening 03/07/2022 Social Influencers of Health Screening 03/07/2022 COVID-19 Vaccine (3 - 2023-2 5 season) 2023 07/12/2020, 06/21/2020 Influenza Vaccine (#1) 2023 RSV Immunization Patients 60 + Years Old (1 - 1-dose 75+ series) 08/06/2027 HIB Vaccines Aged Out No longer eligi ble based on patient's age to complete this topic HPV Vaccines Aged Out No longer eligi ble based on patient's age to complete this topic Hepatitis A Vaccines Aged Out No long er eligible based on patient's age to complete this topic Hepatitis B Vaccines Aged Out No long er eligible based on patient's age to complete this topic IPV Vaccines Aged Out No longer eligi ble based on patient's age to complete this topic MMR Vaccines Aged Out No longer eligi ble based on patient's age to complete this topic Meningococcal ACWY Vaccine Aged Out N o longer eligible based on patient's age to complete this topic RSV Immunization Patients Under 20 months Aged Out No longer eligible b ased on patient's age to complete this topic Varicella Vaccines Aged Out No longer eligible based on patient's age to complete this topic Medical Devices Implanted Type Area Multiple Drill Operator Device Identifier Shelf Expiration Date Model / Serial / Lot Component Femoral Posterior Stabilized Rt Size 4 Beaded W\Pe - [id number] Implanted:Qty: 1 on 04/24/2019 by Brigido Adair MD Right: Knee [employer] 01/14/2024 5516-F-402 / / [id number] Triathlon Tritanium Baseplate Size 5 - [id number] Implanted:Qty: 1 on 04/24/2019 by Brigido Adiar MD Right: Knee [employer] 02/27/2024 5536-B-500 / / [id number] Insert Triathlon 5 9mm Posterior Stabilized Bearing X3 - [id number] Implanted:Qty: 1 on 04/24/2019 by Brigido Adair MD Right: Knee [employer] 01/04/2022 5532-G-509 / / [id number] Tritanium Asymmetric Metal Backed Patella 32mm - [id number] Implanted:Qty: 1 on 04/24/2019 by Brigido Adair MD Right: Knee [employer] 02/18/2024 5552-L-320 / / [id number] Knee Bsplt Triathlon Ti Sz 4 Stry-Howm [id number] Implanted:Qty: 1 on 04/20/2021 by Brigido Adair MD Left: Knee [employer] [id number] 12/27/2025 5536-B-400 / / [id number] Knee Tib Insrt Brng Sz 4 9mm Stry-Howm [id number] Implanted:Qty: 1 on 04/20/2021 by Brigido Adair MD Left: Knee [employer] [id number] 10/26/2025 5531-G-409 / / [id number] Knee Fem Bsplt W Pa Stry-Howm [id number] Implanted:Qty: 1 on 04/20/2021 by Brigido Adair MD Left: Knee [employer] [id number] 02/06/2026 5517-F-301 / / [id number] Knee Ptla Asym Tritanium 32x10 Stry-Howm [id number] [id number] Implanted:Qty: 1 on 04/20/2021 by Brigido Adair MD Left: Knee [employer] [id number] 12/26/2025 5552-L-320 / / [id number] Care Teams Power Superintendent Relationship Specialty Start Date End Date Efra Motta MD [address] [place] [phone] PCP - General Internal Medicine 03/12/19
[2024-04-25] MEDS: gadobutroL 7.5 ML VIAL IVPUSH (09:50)
== END 2024-04-25 08:34 | disposition home or self-care (01) ==
LOC: HO.MRI 08:33
PROVIDERS: PCP Internal Medicine; Visit Provider Urology
DX: C61 Malignant neoplasm of prostate (principal)
CPT/HCPCS: 72197; A9585

== ENCOUNTER 2024-05-02 09:12 | Outpatient (AMB) | payer MEDICARE, SELFPAY ==
--- NOTE | 2024-05-02 09:15 | A.OFFVIS_ITS ---
Intake Visit Reasons: 6M MRI/PSA(set) Intake Note: Patient is present for 6M MRI/PSA Urology Medication:VITAMIN B6 Antibiotic Allergy:PENICILLINS Blood Thinner:NONE Cheesemaker Helper Required: No Allergies Penicillins Allergy (Mild, Verified 05/02/24 09:16) itching if taken for extended time frame HPI Comments Details: Claudio is a pleasant male. He is a patient of Dr. Motta. He is seen for the following urologic conditions - nephrolithiasis - lower urinary tract symptoms - erectile dysfunction Prostate MRI 04/28 - 60 gm No discrete focus of abnormal signal intensity is identified to suggest clinically significant prostate carcinoma Discussed MRI finding Continue to follow PSA Prostate cancer - 08/25 - low-grade, low volume Biopsy performed time of GreenLight laser Secondary to jump in PSA from 4.0 to 7 Jeremi score: 3+3 = 6 Tumor quantitation: Number cores positive: 3 Total number of cores: 12 LBL 5%, LML 5%, RBL 5% % of tissue involved: Less than 5% of all tissue examined T1C 85 gm Prostate MRI 04/28 - 60 gm No discrete focus of abnormal signal intensity is identified to suggest clinically significant prostate carcinoma Lower urinary tract symptoms Longstanding - Progressive - Feelings of incomplete emptying Prior urologist had discussed use of finasteride. He had concerns regarding side effects PCP had prescribed daily tadalafil PSA 05/27 4.0, 04/28 2.7 08/25 GreenLight laser prostate Erectile dysfunction Recent switched to daily tadalafil Nephrolithiasis For stones over prostate 20 years Works as excavator contractor Suggest increase fluids and vitamin B6 Prescription provided [facility] Medical History Peyronie's disease HTN (hypertension) Elevated PSA History of kidney stones Primary osteoarthritis of knees, bilateral BPH (benign prostatic hyperplasia) Surgical History History of esophagogastroduodenoscopy (EGD) H/O colonoscopy Hx of hernia repair Hx of hemorrhoidectomy History of total bilateral knee replacement Hx of cystoscopy Social History Are you a primary dialysis patient care technician to a significant other at home: No Do you presently have visiting nurse or other home services: No Patient Tobacco Use Status: Never used Tobacco Review of Systems Const Denies chills and Denies fever(s) Card Reports no additional complaints and Denies syncope Resp Denies cough GI Denies abdominal pain and Denies heartburn Reports as per HPI and Denies change in libido Neuro Denies syncope Psych Denies change in libido Endo Denies change in libido Physical Exam Const General: cooperative, healthy appearing, comfortable and no acute distress Orientation/consciousness: patient oriented x3 HEENT Face and sinus: Yes normal facial exam Mouth: moist mucous membranes Neck Neck: Yes normal visual inspection, Yes full ROM and Yes trachea midline Chest Chest palpation & inspection: normal inspection of the chest Resp Effort & Inspection: normal respiratory effort, able to speak in complete sentences and no respiratory distress GI Inspection: Yes normal to inspection Back/Spine/Pelvis Cervical Spine: normal cervical lordosis Thoracic/Lumbar Spine: thoracic and lumbar spine normal to inspection Skin General skin exam: no rashes or lesions noted Neuro General: patient oriented x3, gait normal, tone normal and moves all extremities Extrem General: Yes normal to inspection and Yes capillary refill normal Results AMB Urinalysis, Automated UA Leukoctes 0 Leeanne/uL Last Edit by BEVERLY Rosales on 05/02/24 09:25 UA Nitrite Negative Last Edit by BEVERLY Rosales on 05/02/24 09:25 UA Urobilinogen 0.2 mg/dL Last Edit by BEVERLY Rosales on 05/02/24 09:2 5 UA Protein 0 mg/dL Last Edit by BEVERLY Rosales on 05/02/24 09:25 UA pH 6.0 Last Edit by BEVERLY Rosales on 05/02/24 09:25 UA Blood 0 Geovanny/uL Last Edit by BEVERLY Rosales on 05/02/24 09:25 UA Specific [place] 1.010 Last Edit by BEVERLY Rosales on 05/02/24 09: 25 UA Ketone Negative Last Edit by BEVERLY Rosales on 05/02/24 09:25 UA Bilirubin 0 mg/dL Last Edit by BEVERLY Rosales on 05/02/24 09:25 UA Glucose 0 mg/dL Last Edit by BEVERLY Rosales on 05/02/24 09:25 Results Reviewed Results Reviewed: Laboratory Last Values Urine pH (Auto) 6.0 05/02/24 09:25 Specific [place] (Auto) 1.010 05/02/24 09:25 Urine Protein (Auto) 0 mg/dL 05/02/24 09:25 Glucose (UA)(Auto) 0 mg/dL 05/02/24 09:25 Urine Ketones (Auto) Negative 05/02/24 09:25 Urine Blood (Auto) 0 Geovanny/uL 05/02/24 09:25 Urine Nitrite (Auto) Negative 05/02/24 09:25 Urine Bilirubin (Auto) 0 mg/dL 05/02/24 09:25 Urine Urobilinogen (Auto) 0.2 mg/dL 05/02/24 09:25 Leukocyte Esterase (Auto) 0 Leeanne/uL 05/02/24 09:25 Assessment & Plan Assessment & Plan (1) Prostate cancer: Code(s): C61 - Malignant neoplasm of prostate Category: Medical (2) Erectile dysfunction: Code(s): N52.9 - Male erectile dysfunction, unspecified Category: Medical Plan Six-month follow-up Orders: Orders Prostate Specific Antigen 6 Months C61 - Malignant neoplasm of prostate AMB Urinalysis Automated Today Z13.9 - Encounter for screening, unspecified Patient Instructions: Imaging studies, laboratory and physical exam results were discussed and reviewed in detail. No major barriers to patient understanding were identified. An opportunity to ask questions regarding the treatment plan was provided. All questions were answered. The patient expressed understanding and agreement with the above treatment plan. The patient is aware they should contact our office by phone for worsening of their current condition or the appearance of new urologic symptoms. Compliance is encouraged with any medications and followup testing that is ordered. It is a privilege to participate in the urologic care of your patient. If you have any questions or concerns regarding treatment for the above conditions, or other urologic issues, please do not hesitate to contact me. The office telephone contact is [phone]. This note is constructed using voice recognition software. While every effort has been made to ensure accuracy director food and beverage errors may have been included. Yours sincerely, Dr Leroy Hassan MD, [facility] - Urology Providers of Expert, Compassionate Care for the Genitourinary System Coding Level of Care Code Est Pt Level 3 (51635) Diagnoses Prostate cancer C61 Erectile dysfunction N52.9
--- OUTSIDE RECORDS SUMMARY | 2024-05-02 10:40 | XMS_ITS | Clinical Summary ---
Author Organization [facility] Address [address] [place] [phone] Care Team Providers Care Events And Promotions Assistant Name Role Phone Efra Motta MD Primary Care Provider [phone] Surgical History Surgery Date Site/Laterality Comments HERNIA [...] this topic Medical Devices Implanted Type Area Solar Thermal Technician Device Identifier Shelf Expiration Date Model / Serial / Lot Component Femoral Posterior Stabilized Rt Size 4 Beaded W\Pe - [id number] Implanted:Qty: 1 on 04/24/2019 by Brigido Adair MD Right: Knee [employer] 01/14/2024 5516-F-402 / / [id number] Triathlon Tritanium Baseplate Size 5 - [id number] Implanted:Qty: 1 on 04/24/2019 by Brigido Adair MD Right: Knee [employer] 02/27/2024 5536-B-500 / / [id number] Insert Triathlon 5 9mm Posterior Stabilized Bearing X3 - [id number] Implanted:Qty: 1 on 04/24/2019 by Brigido Adair MD Right: Knee [employer] 01/04/2022 5532-G-509 / / [id number] Tritanium Asymmetric Metal Backed Patella 32mm - [id number] Implanted:Qty: 1 on 04/24/2019 by Brigido Adair MD Right: Knee [employer] 02/18/2024 5552-L-320 / / [id number] Knee Bsplt Triathlon Ti Sz 4 Stry-Howm [id number] Implanted:Qty: 1 on 04/20/2021 by Brigido Adair MD Left: Knee [employer] [id number] 12/27/2025 5536-B-400 / / [id number] Knee Tib Insrt Brng Sz 4 9mm Stry-Howm [id number] Implanted:Qty: 1 on 04/20/2021 by Brigido Adair MD Left: Knee [employer] [id number] 10/26/2025 5531-G-409 / / [id number] Knee Fem Bsplt W Pa Stry-Howm [id number] Implanted:Qty: 1 on 04/20/2021 by Brigido Adair MD Left: Knee [employer] [id number] 02/06/2026 5517-F-301 / / [id number] Knee Ptla Asym Tritanium 32x10 Stry-Howm [id number] Implanted:Qty: 1 on 04/20/2021 by Brigido Adair MD Left: Knee [employer] [id number] 12/26/2025 5552-L-320 / / [id number] Care Teams Events And Promotions Assistant Relationship Specialty Start Date End Date Efra Motta MD [address] [place] [phone] PCP - General Internal Medicine 03/12/19
--- OUTSIDE RECORDS SUMMARY | 2024-05-02 10:40 | XMS_ITS | Clinical Summary ---
Author Organization [facility] Address [address] [place] [address] Care Team Providers Care Securities Attorney Name Role Phone Efra Motta MD Primary Care Provider [phone] Allergies Active Allergy Reactions Criticality Noted Date [...] Relation Name Status Comments Father (Age 83) [place] Mother Alive Sister 2 Alive Social History [...] this topic Medical Devices Implanted Type Area Outpatient Coding Specialist Device Identifier Shelf Expiration Date Model / Serial / Lot Component Femoral Posterior Stabilized Rt Size 4 Beaded W\Pe - [id number] - [id number] Implanted:Qty: 1 on 04/24/2019 by Brigido Adair [place] [facility] Right: Knee [employer] 01/14/2024 5516-F-402 / / [id number] Triathlon Tritanium Baseplate Size 5 - [id number] - [id number] Implanted:Qty: 1 on 04/24/2019 by Brigido Adair [place] [facility] Right: Knee [employer] 02/27/2024 5536-B-500 / / [id number] Insert Triathlon 5 9mm Posterior Stabilized Bearing X3 - [id number] - [id number] Implanted:Qty: 1 on 04/24/2019 by Brigido Adair [place] [facility] Right: Knee [employer] [facility] 01/04/2022 5532-G-509 / / [id number] Tritanium Asymmetric Metal Backed Patella 32mm - [id number] - [id number] Implanted:Qty: 1 on 04/24/2019 by Brigido Adair MD [place] [facility] Right: Knee [employer] 02/18/2024 5552-L-320 / / [id number] Knee Bsplt Triathlon Ti Sz 4 Stry-Howm 2235-J-[id number] 543 - [id number] Implanted:Qty: 1 on 04/20/2021 by Brigido Adair MD [place] [facility] Left: Knee [facility] [id number] 12/27/2025 5536-B-400 / / [id number] Knee Tib Insrt Brng Sz 4 9mm Stry-Howm 6721-L-714-548 414 - [id number] Implanted:Qty: 1 on 04/20/2021 by Brigido Adair [place] [facility] Left: Knee [employer] [id number] 10/26/2025 5531-G-409 / / [id number] Knee Fem Bsplt [facility] 4531-L-148-645 555 - [id number] Implanted:Qty: 1 on 04/20/2021 by Brigido Adair MD [place] [facility] Left: Knee [employer] [id number] 02/06/2026 5517-F-301 / / [id number] Knee Ptla Asym Tritanium 32x10 [facility] 4595-V-[id number] 039 - [id number] Implanted:Qty: 1 on 04/20/2021 by Brigido Adair MD [place] [facility] Left: Knee [facility] [id number] 12/26/2025 5552-L-320 / / [id number] Advance Directives For more information, please contact: [phone] Latest Code Status on File Code Status [...] way: discussion with patient . Care Teams Securities Attorney Relationship Specialty Start Date End Date Efra Motta MD [address] [place] [phone] PCP - General Internal Medicine 03/12/19
== END 2024-05-02 10:22 | disposition home or self-care (01) ==
PROVIDERS: PCP Internal Medicine; Visit Provider Urology
DX: C61 Malignant neoplasm of prostate (principal); N52.9 Male erectile dysfunction, unspecified; Z13.9 Encounter for screening, unspecified
CPT/HCPCS: 99213

== ENCOUNTER → 2024-05-02 09:12 | Outpatient (BNVA) | payer MEDICARE, SELFPAY | PROVIDERS: PCP Internal Medicine; Visit Provider Urology | DX: N52.9 Male erectile dysfunction, unspecified (principal); C61 Malignant neoplasm of prostate; Z87.442 Personal history of urinary calculi | CPT/HCPCS: 81003; 99212 ==

== ENCOUNTER 2024-10-30 08:13 | Outpatient (AMB) | payer MEDICARE, SELFPAY ==
--- NOTE | 2024-10-30 08:14 | MHC.OFFVIS ---
Intake Visit Reasons: 6m/PSA Intake Note: Patient is present for 6MO follow up with PSA Labs done 10/23/24 PSA: 2.93 Urology Medication:VITAMIN B6 Antibiotic Allergy:PENICILLINS Blood Thinner:NONE Key Punch Operator Required: No Accompanied by: Self / Same As Patient Allergies Penicillins Allergy (Mild, Verified 10/30/24 08:15) itching if taken for extended time frame HPI Comments Details: Claudio is a pleasant male. He is a patient of Dr. Motta. He is seen for the following urologic conditions - nephrolithiasis - lower urinary tract symptoms - erectile dysfunction Telemedicine Evaluation 15 min Consultation [employer] Video Six-month follow-up PSA. 2.9. Continues to remain with adequate range. Prostate MRI 04/28 - 60 gm No discrete focus of abnormal signal intensity is identified to suggest clinically significant prostate carcinoma Discussed MRI finding Continue to follow PSA Q six-month Prostate cancer - 08/25 - low-grade, low volume Biopsy performed time of GreenLight laser Secondary to jump in PSA from 4.0 to 7 Jeremi score: 3+3 = 6 Tumor quantitation: Number cores positive: 3 Total number of cores: 12 LBL 5%, LML 5%, RBL 5% % of tissue involved: Less than 5% of all tissue examined T1C 85 gm Prostate MRI 04/28 - 60 gm No discrete focus of abnormal signal intensity is identified to suggest clinically significant prostate carcinoma Lower urinary tract symptoms Longstanding - Progressive - Feelings of incomplete emptying Prior urologist had discussed use of finasteride. He had concerns regarding side effects PCP had prescribed daily tadalafil PSA 05/27 4.0, 04/28 2.7, 10/26 2.9 08/25 GreenLight laser prostate Erectile dysfunction Recent switched to daily tadalafil Nephrolithiasis For stones over prostate 20 years Works as excavator contractor Suggest increase fluids and vitamin B6 Prescription provided [facility] Medical History Peyronie's disease HTN (hypertension) Elevated PSA History of kidney stones Primary osteoarthritis of knees, bilateral BPH (benign prostatic hyperplasia) Surgical History History of esophagogastroduodenoscopy (EGD) H/O colonoscopy Hx of hernia repair Hx of hemorrhoidectomy History of total bilateral knee replacement Hx of cystoscopy Social History Are you a primary resident care supervisor to a significant other at home: No Do you presently have visiting nurse or other home services: No Patient Tobacco Use Status: Never used Tobacco Review of Systems Const All systems reviewed & are unremarkable except as noted in HPI and below Reports no additional complaints Resp Reports no additional complaints GI Reports no additional complaints Reports as per HPI Musc Reports no additional complaints Physical Exam Telemedicine evaluation Appropriate responses Regular breathing rate and rhythm HEENT Head: Yes normal to inspection Ears: hearing grossly normal bilaterally Eyes General: appearance normal, both eyes and all related structures Neck Neck: Yes normal visual inspection Chest Chest palpation & inspection: normal inspection of the chest Resp Effort & Inspection: normal respiratory effort and able to speak in complete sentences Telehealth Telehealth Telehealth Platform: [employer] Location of provider rendering services: practice address Location of patient: address on file Patient Identification confirmed using: Name, : Yes Telehealth method: video Patient verbally consented to treatment: Yes Patient verbally consented to billing insurance company: Yes Patient informed of any privacy concerns related to visit: Yes Minutes spent on Phone/Video with Pt.: 15 Assessment & Plan Assessment & Plan (1) Prostate cancer: Code(s): C61 - Malignant neoplasm of prostate Category: Medical (2) BPH (benign prostatic hyperplasia): Code(s): N40.0 - Benign prostatic hyperplasia without lower urinary tract symptoms Category: Medical Plan Six-month follow-up PSA office Orders: Orders Prostate Specific Antigen 6 Months C61 - Malignant neoplasm of prostate Patient Instructions: This note is constructed using voice recognition software. While every effort has been made to ensure accuracy business quality assurance analyst errors may have been included. Imaging studies, laboratory and physical exam results were discussed and reviewed in detail. No major barriers to patient understanding were identified. An opportunity to ask questions regarding the treatment plan was provided. All questions were answered. The patient expressed understanding and agreement with the above treatment plan. The patient is aware they should contact our office by phone for worsening of their current condition or the appearance of new urologic symptoms. Compliance is encouraged with any medications and followup testing that is ordered. It is a privilege to participate in the urologic care of your patient. If you have any questions or concerns regarding treatment for the above conditions, or other urologic issues, please do not hesitate to contact me. The office telephone contact is [phone]. Sincerely, Dr Leroy Hassan MD, [facility] - Urology Compassionate Specialist Care for the Genitourinary System Coding Level of Care Code Tele Est Pt Level 3 (75988) Complex EM visit Add On G2211 Diagnoses Prostate cancer C61 BPH (benign prostatic hyperplasia) N40.0
--- OUTSIDE RECORDS SUMMARY | 2024-10-30 08:19 | XMS_ITS | Clinical Summary ---
Author Organization [facility] Address [id number] [place] [phone] Care Team Providers Care Service Delivery Manager Name Role Phone Efra Motta MD Primary Care Provider [phone] Surgical History Surgery Date Site/Laterality Comments HERNIA [...] Relation Name Status Comments Father (Age 83) [place] Mother Alive Sister 2 Alive Social History Tobacco Use Types Packs/Day Years Used Date Smoking Tobacco: Never Smokeless Tobacco: Never Alcohol Use Standard Drinks/Week Comments Yes 0 (1 standard drink = 0.6 oz pur e alcohol) Sex and Gender Information Value Date Recorded Sex Assigned at Not on file Legal Sex Male 11:32 PM EST Gender Identity Not on file Sexual Orientation Not on file Obstetrics History Plan of Treatment Health Maintenance Due Date Last Done Comments DTaP,Tdap,and Td Vaccines (1 - Tdap) 08/06/1971 Pneumococcal Vaccine: 50+ Years (1 of 1 - PCV) 2002 Zoster Vaccines (1 of 2) 2002 COVID-19 Vaccine (3 - 2023-2 5 season) 2023 07/12/2020, 06/21/2020 Depression Screening 04/04/2024 Influenza Vaccine (#1) 2024 RSV Immunization Adult Patients (1 - 1-dose 75+ series) 08/06/2027 HIB [...] patient's age to complete this topic Meningococcal B Vaccine Aged Out No l onger eligible based on patient's age to complete this topic RSV Immunization Patients Under 20 months Aged Out No longer eligible b ased on patient's age to complete this topic Varicella Vaccines Aged Out No longer eligible based on patient's age to complete this topic Medical Devices Implanted Type Area Foreign Law Consultant Device Identifier Shelf Expiration Date Model / Serial / Lot Component Femoral Posterior Stabilized Rt Size 4 Beaded W\Pe - [id number] Implanted:Qty: 1 on 04/24/2019 by Brigido Adair MD Right: Knee [employer] 01/14/2024 5516-F-402 / / [id number] Triathlon Tritanium Baseplate Size 5 - [id number] Implanted:Qty: 1 on 04/24/2019 by Brigido Adair MD Right: Knee [employer] 02/27/2024 5536-B-500 / / [id number] Insert Triathlon 5 9mm Posterior Stabilized Bearing X3 - [id number] Implanted:Qty: 1 on 04/24/2019 by Brigido Adair MD Right: Knee [employer] 01/04/2022 5532-G-509 / / [id number] Tritanium Asymmetric Metal Backed Patella 32mm - [id number] Implanted:Qty: 1 on 04/24/2019 by Brigido Adair MD Right: Knee [employer] 02/18/2024 5552-L-320 / / [id number] Knee Bsplt Triathlon Ti Sz 4 Stry-Howm 7020-N-[id number] 543 Implanted:Qty: 1 on 04/20/2021 by Brigido Adair MD Left: Knee [employer] [id number] 12/27/2025 5536-B-400 / / [id number] Knee Tib Insrt Brng Sz 4 9mm Stry-Howm 5314-K-[id number] 414 Implanted:Qty: 1 on 04/20/2021 by Brigido Adair MD Left: Knee [employer] [id number] 10/26/2025 5531-G-409 / / [id number] Knee Fem Bsplt W Pa Stry-Howm 0430-Y-665-645 555 Implanted:Qty: 1 on 04/20/2021 by Brigido Adair MD Left: Knee [employer] [id number] 02/06/2026 5517-F-301 / / [id number] Knee Ptla Asym Tritanium 32x10 Stry-Howm 3221-P-927-606 039 Implanted:Qty: 1 on 04/20/2021 by Brigido Adair MD Left: Knee [employer] [id number] 12/26/2025 5552-L-320 / / [id number] Care Teams Service Delivery Manager Relationship Specialty Start Date End Date Efra Motta MD [address] [place] [phone] PCP - General Internal Medicine 03/12/19
--- OUTSIDE RECORDS SUMMARY | 2024-10-30 08:19 | XMS_ITS | Clinical Summary ---
Author Organization [facility] Address [address] [place] [address] Care Team Providers Care Bailer Operators Supervisor Name Role Phone Efra Motta MD Primary Care Provider [phone] Allergies Active Allergy Reactions Criticality Noted Date [...] Relation Name Status Comments Father (Age 83) [place] Mother Alive Sister 2 Alive Social History [...] 60 04/21/2021 8:40 AM EST Temperature 36.9 C (98.4 F) 04/21/2021 8:40 AM EST Respiratory Rate 16 04/21/2021 8:40 AM EST [...] of 1 - PCV) 2017 COVID-19 Vaccine (3 2023-2 5 season) 2023 07/12/2020, 06/21/2020 Influenza Vaccine (#1) 2024 RSV Adult > 60+ Yrs or (1 - 1-dose 75+ series) 08/06/2027 Hepatitis B Vaccines Aged Out No long er eligible based on patient's age to complete this topic RSV Ped < 20 months Aged Out No longe r eligible based on patient's age to complete this topic Medical Devices Implanted Type Area Academic Hospitalist Device Identifier Shelf Expiration Date Model / Serial / Lot Component Femoral Posterior Stabilized Rt Size 4 Beaded W\Pe - [id number] - [id number] Implanted:Qty: 1 on 04/24/2019 by Brigido Adair MD [place] [facility] Right: Knee [employer] 01/14/2024 5516-F-402 / / [id number] Triathlon Tritanium Baseplate Size 5 - [id number] - [id number] Implanted:Qty: 1 on 04/24/2019 by Brigido Adair MD at [facility] Right: Knee [employer] 02/27/2024 5536-B-500 / / [id number] Insert Triathlon 5 9mm Posterior Stabilized Bearing X3 - [id number] - [id number] Implanted:Qty: 1 on 04/24/2019 by Brigido Adair MD at [facility] Right: Knee [employer] 01/04/2022 5532-G-509 / / [id number] Tritanium Asymmetric Metal Backed Patella 32mm - [id number] - [id number] Implanted:Qty: 1 on 04/24/2019 by Brigido Adair MD at [facility] Right: Knee [employer] 02/18/2024 5552-L-320 / / [id number] Knee Bsplt Triathlon Ti Sz 4 Stry-How 6371-C-122-552 543 - [id number] Implanted:Qty: 1 on 04/20/2021 by Brigido Adair MD at [facility] Left: Knee [facility] [id number] 12/27/2025 5536-B-400 / / [id number] Knee Tib Insrt Brng Sz 4 9mm Stry-Howm 4105-T-068-548 414 - [id number] Implanted:Qty: 1 on 04/20/2021 by Brigido Adair MD at [facility] Left: Knee [employer] [facility] [id number] 10/26/2025 5531-G-409 / / [id number] Knee Fem Bsplt [facility] 9121-B-352-645 555 - [id number] Implanted:Qty: 1 on 04/20/2021 by Brigido Adair MD at [facility] Left: Knee [employer] [facility] [id number] 02/06/2026 5517-F-301 / / [id number] Knee Ptla Asym Tritanium 32x10 Stry-How 9951-C-677-606 039 - [id number] Implanted:Qty: 1 on 04/20/2021 by Brigido Adair MD at [facility] Left: Knee [employer] [id number] 12/26/2025 5552-L-320 / / [id number] Advance Directives For more information, please contact: [phone] Latest Code Status on File Code Status [...] way: discussion with patient . Care Teams Bailer Operators Supervisor Relationship Specialty Start Date End Date Efra Motta MD [address] [place] [phone] PCP - General Internal Medicine 03/12/19
== END 2024-10-30 10:35 | disposition home or self-care (01) ==
LOC: HO.HUSH 08:13
PROVIDERS: PCP Internal Medicine; Visit Provider Urology
DX: C61 Malignant neoplasm of prostate (principal); N40.0 Benign prostatic hyperplasia without lower urinary tract symptoms
CPT/HCPCS: 99213; G2211